=== PATIENT | female | born 1955 | race Caucasian/White ===

== ENCOUNTER → 2018-03-11 | Outpatient (CLI) | payer BC ==
[~2018-03-11] MED LIST: ASPI325T39 PO; ATV/1 PO; DOCU100C PO; DULO60CA44 PO; FERR1TAB13 PO; FOLI1TAB8 PO; IBUP1TAB51 PO; ONDA8TAB62 SL; RIFA300C34 PO; SULF800T23 PO
--- NOTE | 2018-03-11 12:23 | DIAGNOSTIC IMAGING REPORT ---
Ana LEDEZMA SHLDR,HIP,KNEE CLINICAL HISTORY: 63 years-old Female presenting with DJD HIP. COMPARISON: 03/09/2018. PROCEDURE: The risks, benefits, and alternatives to the procedure were discussed with the patient. Written informed consent was obtained. The patient was placed supine on the fluoroscopy table, and a right hip injection was performed under fluoroscopic guidance. The area was prepped and draped in the usual sterile fashion. The skin and soft tissues anesthetized with local 1% lidocaine. The right hip joint was accessed utilizing a 22-gauge needle. Approximately 2 mL of Optiray 300 was injected into the joint space under fluoroscopic guidance to confirm intra-articular positioning. Subsequently, a 7 mL mixture containing 5 mL of 0.5% bupivacaine and 2 mL of betamethasone was injected into the joint. The procedure was well tolerated without immediate complication. Fluoroscopy dosage (mGy): Not available. Fluoroscopy time: 26 seconds. Number of fluoroscopic spot images: 0. IMPRESSION: Successful injection of the right hip under fluoroscopic guidance. Electronically signed by: Og Arita M.D. 03/11/2018 12:22 PM Dictated Date/Time: 03/11/2018 12:20 PM
== END | disposition home or self-care (01) ==
LOC: C.RADBC 10:39
PROVIDERS: ATTEND Orthopaedic Surgery
DX: M16.11 Unilateral primary osteoarthritis, right hip (principal)